=== PATIENT | female | born 1950 | race Caucasian/White ===

== ENCOUNTER 2017-03-28 10:02 | Inpatient (IN) | payer OTHER ==
[2017-03-28] MEDS ORDERED: DUONEB 0.5 MG/3 MG ONE (12:34)
[2017-03-28] MEDS ORDERED: TUSSIONEX PENNKINETIC SUSP PO PRN (12:44)
[2017-03-28] MEDS: DUONEB 0.5 MG/3 MG NEB SCH ×3 (12:54→20:43)
[2017-03-28] MEDS ORDERED: NS 1/2 1000 ML IV 1,000 ML IV ONE (13:03)
[2017-03-28] MEDS: LEVAQUIN PREMIX IV 750 MG 750 MG/150 ML BAG IV SCH (13:15)
[2017-03-28] MEDS: ROBITUSSIN DM PO SCH ×3 (13:15→21:09)
[2017-03-28] MEDS: NS 1/2 1000 ML IV 1,000 ML IV SCH (13:15)
[2017-03-28 13:22] LABS: BASOPHILS # (AUTO) 0.1 X10^3/uL (0.0-0.1); BASOPHILS % (AUTO) 0.4 % (0.2-1.0); EOSINOPHILS % (AUTO) 0.1 % (0.9-2.9); HEMATOCRIT 29.2 % (36.0-47.0); LYMPHOCYTES # (AUTO) 1.7 X10^3/uL (1.3-2.9); LYMPHOCYTES % (AUTO) 12.9 % (21.0-51.0); MEAN CORPUSCULAR HEMOGLOBIN 31.7 pg (27.0-34.0); MEAN CORPUSCULAR HGB CONC 34.1 g/dL (33.0-35.0); MEAN PLATELET VOLUME 9.3 fL (7.4-11.0); MONOCYTES # (AUTO) 1.4 x10^3/uL (0.3-0.8); MONOCYTES % (AUTO) 10.8 % (0.0-13.0); NEUTROPHILS % (AUTO) 75.8 % (42.0-75.0); PLATELET COUNT 129 X10^3/uL (150.0-450.0); RED BLOOD COUNT 3.14 X10^6/uL (3.5-5.4); RED CELL DISTRIBUTION WIDTH 17.2 % (11.6-16.5); WHITE BLOOD COUNT 13.2 X10^3/uL (3.6-10.0)
[2017-03-28 13:41] LABS: BAND NEUTROPHILS % 12 % (0-10)
[2017-03-28 13:42] LABS: PLATELET MORPHOLOGY COMMENT NORMAL (NORMAL)
[2017-03-28 13:58] LABS: ALANINE AMINOTRANSFERASE 26 Units/L (12-78); ALBUMIN 3.1 g/dL (3.4-5.0); ALKALINE PHOSPHATASE 119 Units/L (46-116); ASPARTATE AMINO TRANSFERASE 21 Units/L (15-37); BLOOD UREA NITROGEN 15 mg/dL (7-18); CALCIUM 8.3 mg/dL (8.5-10.1); CARBON DIOXIDE 27.8 mmol/L (21-32); CHLORIDE 100 mmol/L (98-107); SODIUM 138 mmol/L (136-145); TOTAL PROTEIN 6.4 g/dL (6.4-8.2); eGFR BLACK RACES > 60 (>60); eGFR NON BLACK RACES > 60 (>60)
--- NOTE | 2017-03-28 14:58 | RAD ---
Examination: Chest, PA and lateral views History: Pneumonia, history of breast CA Findings: Heart size normal lungs clear except for a linear density in the right mid lung. No mass fo rmation or hilar enlargement. There is slight blunting of the right posterior costophrenic sulcus. A left IJ injection port terminates near the cavoatrial junction. Impression: Right midlung linear density consistent with fibrosis/atelectasis. Minimal pleural deform ity right costophrenic angle, likely representing chronic pleural thickening. Reported By:
[2017-03-28] MEDS ORDERED: K-RIDER 10 MEQ/NS 100 ML 10 MEQ/100 ML BAG IV PRN (15:19)
[2017-03-28] MEDS ORDERED: MAG-OX TAB PO PRN (15:19)
[2017-03-28] MEDS ORDERED: POTASSIUM CHLORIDE LIQ 20 MEQ UDC PO PRN (15:19)
[2017-03-28] MEDS ORDERED: K-LYTE EFFERVESCENT PO PRN (15:19)
[2017-03-28] MEDS ORDERED: POTASSIUM CHL 40 MEQ/NS 0.45% 500 ML IV PRN (15:19)
[2017-03-28] MEDS ORDERED: MAGNESIUM SULFATE 1 GM/100 mL PREMIX 1 GM/100 ML BAG IV PRN (15:19)
[2017-03-28] MEDS: POTASSIUM CHL 60 MEQ/NS 0.45% 500 ML IV PRN (15:39)
[2017-03-28] MEDS: TAMIFLU PO SCH ×2 (21:09→23:04)
[2017-03-29] MEDS: POTASSIUM CHL 60 MEQ/NS 0.45% 500 ML IV PRN ×2 (01:02→11:00)
[2017-03-29] MEDS: DUONEB 0.5 MG/3 MG NEB SCH ×4 (01:21→12:29)
[2017-03-29 05:25] LABS: ALANINE AMINOTRANSFERASE 22 Units/L (12-78); ALBUMIN 2.5 g/dL (3.4-5.0); ALKALINE PHOSPHATASE 107 Units/L (46-116); ASPARTATE AMINO TRANSFERASE 23 Units/L (15-37); BLOOD UREA NITROGEN 8 mg/dL (7-18); CALCIUM 7.7 mg/dL (8.5-10.1); CHLORIDE 102 mmol/L (98-107); COR CA(FOR HYPOALB) 8.9 mg/dL (8.5-10.1); CREATININE 0.67 mg/dL (0.55-1.02); MAGNESIUM 1.5 mg/dL (1.7-2.9); SODIUM 139 mmol/L (136-145); TOTAL PROTEIN 5.6 g/dL (6.4-8.2); eGFR BLACK RACES > 60 (>60); eGFR NON BLACK RACES > 60 (>60)
[2017-03-29 05:27] LABS: BASOPHILS % (AUTO) 0.2 % (0.2-1.0); EOSINOPHILS % (AUTO) 0.3 % (0.9-2.9); HEMATOCRIT 26.3 % (36.0-47.0); HEMOGLOBIN 9.1 g/dL (12.0-16.0); LYMPHOCYTES # (AUTO) 0.8 X10^3/uL (1.3-2.9); LYMPHOCYTES % (AUTO) 6.3 % (21.0-51.0); MEAN CORPUSCULAR HGB CONC 34.7 g/dL (33.0-35.0); MEAN CORPUSCULAR VOLUME 92.3 fL (80.0-100.0); MONOCYTES # (AUTO) 1.5 x10^3/uL (0.3-0.8); MONOCYTES % (AUTO) 11.3 % (0.0-13.0); NEUTROPHILS # (AUTO) 10.9 x10^3/uL (2.2-4.8); NEUTROPHILS % (AUTO) 81.9 % (42.0-75.0); PLATELET COUNT 111 X10^3/uL (150.0-450.0); RED BLOOD COUNT 2.85 X10^6/uL (3.5-5.4); RED CELL DISTRIBUTION WIDTH 16.8 % (11.6-16.5); WHITE BLOOD COUNT 13.3 X10^3/uL (3.6-10.0)
[2017-03-29] MEDS ORDERED: NS 1/2 1000 ML IV 1,000 ML IV ONE (05:30)
[2017-03-29] MEDS: NS 1/2 1000 ML IV 1,000 ML IV SCH (05:37)
[2017-03-29 08:03] LABS: BILIRUBIN,URINE NEGATIVE (NEGATIVE); BLOOD/HEMOGLOBIN,URINE 2+ (NEGATIVE); GLUCOSE, URINE NEGATIVE (NEGATIVE); KETONES,URINE NEGATIVE (NEGATIVE); LEUKOCYTE ESTERASE ,URINE NEGATIVE (NEGATIVE); NITRITES,URINE NEGATIVE (NEGATIVE); PROTEIN,URINE 1+ (NEGATIVE); UROBILINOGEN,URINE NORMAL (NORMAL)
--- NOTE | 2017-03-29 08:06 | DR.UPDATE ---
H&P Update History and Physical Update: WAS SEEN IN THE OFFICE ON 03/28/17. A H&P WAS COMPLETED PRIOR TO ADMISSION. PATIENT HAS BEEN SEEN AND EXAMINED WITH NO CHANGES NOTED TO H&P. Changes noted: NO Yes with the following:
[2017-03-29 08:18] LABS: APPEARANCE,URINE CLEAR (CLEAR); BACTERIA,URINE NEGATIVE /HPF (NEGATIVE); COLOR,URINE YELLOW (YELLOW); RBC,URINE 0 - 1 /HPF (NEGATIVE); SQUAMOUS EPITHELIAL CELL,UR RARE /HPF (NEGATIVE)
[2017-03-29] MEDS ORDERED: COMPAZINE PO PRN (08:21)
[2017-03-29] MEDS ORDERED: ZANTAC PO SCH (09:00)
[2017-03-29] MEDS ORDERED: LETROZOLE PO SCH (09:00)
[2017-03-29] MEDS ORDERED: ZyrTEC TAB 10 MG PO SCH (09:00)
[2017-03-29] MEDS ORDERED: PATIENT'S HOME MEDICATION (Rivaroxaban [Xarelto] 1 TAB) PO SCH (09:00)
[2017-03-29] MEDS ORDERED: LEXAPRO PO SCH (09:00)
[2017-03-29] MEDS: ROBITUSSIN DM PO SCH ×2 (09:04→13:00)
[2017-03-29] MEDS: LEVAQUIN PREMIX IV 750 MG 750 MG/150 ML BAG IV SCH (09:04)
[2017-03-29] MEDS: TAMIFLU PO SCH (09:04)
[2017-03-29] MEDS: NYSTATIN CREAM TOP SCH ×2 (09:06→11:00)
[2017-03-29 10:30] LABS: STOOL FOR WBC NEGATIVE (NEGATIVE)
[2017-03-29 12:14] VITALS: BMI 27.2
[2017-03-29] MEDS ORDERED: LR 1000 ML IV 1,000 ML IV ONE (12:23)
[2017-03-29] MEDS ORDERED: K-DUR TAB 20 MEQ PO STA (12:24)
[2017-03-29] MEDS ORDERED: VSL#3 PO SCH (12:30)
[2017-03-29 13:18] VITALS: BP 104/62
[2017-03-29] MEDS ORDERED: AMBIEN PO SCH (21:00)
[2017-03-30] MEDS ORDERED: XARELTO PO SCH (09:00)
== END 2017-03-29 15:00 | disposition home or self-care (01) | DRG 195 ==
LOC: UNDOADMIN 10:02 → MED/SURG 10:02
PROVIDERS: ADMIT Internal Medicine; ATTEND Internal Medicine
DX: J18.8 Other pneumonia, unspecified organism (principal); J10.08 Influenza due to other identified influenza virus with other specified pneumonia; I10 Essential (primary) hypertension; F41.8 Other specified anxiety disorders; E87.6 Hypokalemia; R19.7 Diarrhea, unspecified; C50.919 Malignant neoplasm of unspecified site of unspecified female breast; Z92.21 Personal history of antineoplastic chemotherapy
CPT/HCPCS: 36415; 71020; 80053; 81001; 82270; 83630; 83735; 84132; 85025; 87040; 87045; 87070; 87086; 87205; 87502; 87899; 94640; 94760; A4222; G9035; J1956; J7120; J7620